=== PATIENT | female | born 1990 | race Asian ===

== ENCOUNTER 2024-01-12 05:03 | Inpatient (IN) ==
--- NOTE | 2023-12-26 12:05 | Anesthesiology Consultation ---
Date of Service December 26, 2023 Assessment & Plan (1) Encounter for pre-operative examination: - Per clinical assessment manager on 12/26/23: No known infectious disease contacts, current infectious disease symptoms in past 10 days or COVID positive test result in the past 30 days. Chart Review Chart Review: new car make ready mechanic initiated History Surgery Operation Date: 01/12/24 07:30 Proposed Procedures p Section (Delivery of Baby Through Abdominal Incision) - Dina Gonzalez MD, FACOG Height/Weight Height: 5 ft 3 in Weight: 68.946 kg Allergies Allergy/AdvReac Type Severity Reaction Status Date / Time No Known Allergies Allergy Verified 12/22/23 09:21 Medications Home Medications Medication Instructions Recorded Confirmed Last Taken prenat.vits,jinny,ysx-zfcs-muxax 1 tab PO DAILY 10/19/22 12/26/23 Unknown acetone (urine) test (Ketone Urine #50 ea 11/03/23 12/22/23 Unknown Test strips) lancets 33 gauge (OneTouch Delica #150 ea 11/03/23 12/22/23 Unknown Plus Lancet) blood sugar diagnostic (FreeStyle #400 ea 11/10/23 12/22/23 Unknown Lite Strips) blood-glucose meter (FreeStyle #1 ea 11/10/23 12/22/23 Unknown Lite Meter kit) lancets 28 gauge (FreeStyle #400 ea 11/10/23 12/22/23 Unknown Lancets) valacyclovir 500 mg tablet 500 mg PO BID #60 tabs 12/22/23 12/26/23 Unknown (Valtrex) Past Medical History Medical History Genital HSV hx; 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 Grandfather (Maternal) Diabetes Grandmother (Paternal) Stroke Denies family history of Ovarian cancer Breast cancer Colorectal cancer Past Surgical History Surgical History S/P wisdom tooth extraction done under local anesthesia Social History Smoking Status: Never smoker Do You Dip or Chew Tobacco: No Hx Alcohol Use: Yes (not while ) alcohol intake frequency: other Alcohol Intake Frequency Comment: 2 drinks/week Hx Substance Use: No substance use type: does not use
--- NOTE | 2024-01-11 12:43 | History & Physical Report ---
Date of Service January 11, 2024 Assessment & Plan (1) Breech presentation: Plan: IUP at 39 weeks with breech presentation for primary LTCS the procedure and it's risks were reviewed with the patient and all of her questions were answered to her satisfaction History of Present Illness Primary Care Provider: NO PCP Patient is a 33 yo female EDC 01/19/24 who presents at 39 weeks for primary LTCS because of persistent breech presentation. complicated by history of HSV currently on Valtrex prophylaxis and diet controlled GDM. testing has been reassuring. Allergies Allergy/AdvReac Type Severity Reaction Status Date / Time No Known Allergies Allergy Verified 01/11/24 10:24 Home Medications Medication Instructions Recorded Confirmed Type prenat.vits,jinny,gsg-ldwm-ncarp 1 tab PO DAILY 10/19/22 01/11/24 History acetone (urine) test (Ketone Urine #50 ea 11/03/23 01/11/24 Rx Test strips) lancets 33 gauge (OneTouch Delica #150 ea 11/03/23 01/11/24 Rx Plus Lancet) blood sugar diagnostic (FreeStyle #400 ea 11/10/23 01/11/24 Rx Lite Strips) blood-glucose meter (FreeStyle #1 ea 11/10/23 01/11/24 Rx Lite Meter kit) lancets 28 gauge (FreeStyle #400 ea 11/10/23 01/11/24 Rx Lancets) valacyclovir 500 mg tablet 500 mg PO BID #60 tabs 12/22/23 01/11/24 Rx (Valtrex) Patient History Medical History Genital HSV hx; 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 Grandfather (Maternal) Diabetes Grandmother (Paternal) Stroke Denies family history of Ovarian cancer Breast cancer Colorectal cancer Social History (Updated 06/06/23 @ 09:53 by Columba J Knepp) Smoking Status: Never smoker Second Hand Exposure: No; Do You Dip or Chew Tobacco: No; Hx Alcohol Use: Yes (not while ) Hx Substance Use: No Preferred Language: Uzbek Communication Ability: Effective Green Feed Attendant Required: No Beliefs That Will Affect Care: None marital status: marital status details: Sulaiman Whitt (35) [phone] Current Living Situation: Spouse Current Living Situation Comment: lives with spouse and 2 cats. litter changes. 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 [employer] Feels Safe at Home: Yes Assistive Devices: Contacts and Glasses Review of Systems All systems reviewed & are unremarkable except as noted in HPI & below Physical Exam Constitutional: WD/WN, vitals as above Respiratory: normal respiratory effort, lungs clear to auscultation Cardiovascular: RRR, no murmur, no edema Psychiatric: A+Ox3, euthymic affect Genitourinary: OB Exam Abdomen: + fundal height (term), + heart tones (140's), + breech and + estimated weight (7-8 pounds) Coding Level of Care Code None Diagnoses Breech presentation, single or unspecified fetus O32.1XX0 Fetus number: single or unspecified fetus (1) Breech presentation Fetus number: single or unspecified fetus Qualified Code(s): O32.1XX0 - Maternal care for breech presentation, not applicable or unspecified
[2024-01-12] MEDS: LACTATED RINGER'S 1,000 ML IV SCH (06:14)
[2024-01-12 06:21] LABS: Hematocrit (blood only) 39.8 % (37.0-47.0); Hemoglobin 13.4 g/dl (12.0-16.0); Mean Corpuscular Hemoglobin 28.9 pg (25.0-34.0); Mean Corpuscular Hgb Conc 33.7 g/dL (32.0-36.0); Platelet Count 280 K/uL (130-400); RDW Coefficient of Variation 13.8 % (11.5-14.5); RDW Standard Deviation 42.9 fL (36.4-46.3); Red Blood Count 4.63 M/uL (4.20-5.40); White Blood Count 10.32 K/ul (4.8-10.8)
[2024-01-12] MEDS ORDERED: MoRPHine SULFATE PF 1 MG/ML 10 ML AMP/VIAL ONE (07:04)
--- NOTE | 2024-01-12 07:10 | History & Physical Bridge Note ---
Date of Service January 12, 2024 History & Physical Bridge Note I have examined the patient, reviewed the History & Physical and in the interval since the performance of the History & Physical I have noted the following changes of clinical significance: no changes noted
[2024-01-12] MEDS: CITRIC ACID/SODIUM CITRATE 15 ML UDC PO SCH (07:28)
[2024-01-12] MEDS: ceFAZolin 2000MG 2,000 MG/15 ML SYR IV SCH (07:29)
[2024-01-12] MEDS ORDERED: NALOXONE HCL 0.08 MG in SYRINGE 1.8 ML IV PRN (07:53)
[2024-01-12] MEDS ORDERED: MoRPHine SULFATE PF 1 MG/ML 10 ML AMP/VIAL INT SPINAL ONE (07:53)
[2024-01-12] MEDS ORDERED: diphenhydrAMINE 50 MG/ML VIAL IV PRN (07:53)
[2024-01-12] MEDS ORDERED: NALBUPHINE HCL 5 MG in SYRINGE 0 ML IV PRN (07:53)
[2024-01-12] MEDS ORDERED: LACTATED RINGER'S 500 ML IV PRN (07:53)
[2024-01-12] MEDS ORDERED: MoRPHine SULFATE 2 MG/ML CARP IV PRN (07:53)
[2024-01-12] MEDS ORDERED: ePHEDrine sulfate 50 MG/ML AMP IV PRN (07:53)
[2024-01-12] MEDS ORDERED: DROPERIDOL 5 MG/2 ML VIAL IV PRN (07:53)
[2024-01-12] MEDS ORDERED: KETOROLAC 30 MG/ML VIAL IV PRN (07:53)
[2024-01-12] MEDS ORDERED: NALOXONE HCL 0.4 MG/1 ML VIAL/CARP IV PRN (07:53)
[2024-01-12] MEDS ORDERED: NALOXONE HCL 1 MG in SODIUM CHLORIDE 0.9% 1,000 ML IV PRN (07:53)
[2024-01-12] MEDS ORDERED: DC INTRASPINAL MORPHINE SCH (08:00)
[2024-01-12] MEDS ORDERED: SODIUM CHLORIDE 0.9% 1,000 ML IV SCH (08:00)
[2024-01-12] MEDS ORDERED: NO NARCOTICS OR SEDATIVES SCH (08:00)
[2024-01-12] MEDS ORDERED: PHENYLEPHRINE 100MCG/ML 10ML SYR IV ONE (08:26)
[2024-01-12] MEDS ORDERED: ONDANSETRON INJ 2 MG/ML 2 ML VIAL ONE (08:26)
[2024-01-12] MEDS ORDERED: METOCLOPRAMIDE HCL INJ 5 MG/ML 2 ML VIAL ONE (08:26)
[2024-01-12] MEDS ORDERED: OXYTOCIN 10 UNITS/ML VIAL ONE (08:26)
[2024-01-12] MEDS ORDERED: ePHEDrine sulfate 50 MG/5 ML SYR ONE (08:26)
--- NOTE | 2024-01-12 08:40 | Operative Report ---
PG Post Operative Report Pre & Post Diagnosis Operation Date: 01/12/24 07:30 Pre-Op Diagnosis: Breech Presentation Post-Op Diagnosis: Breech Presentation I identified the patient and participated in the time-out.: Yes Procedure Operation Date: 01/12/24 07:30 Actual Procedures p Section delivery of live male child at 0804 - Dina Gonzalez MD, FACOG Surgeon Dina Gonzalez MD, FACOG Internet Media Planner Shawn Jurado MD Estimated Blood Loss 1,056 (QBL) Findings Consistent with Post-Op Diagnosis Uterus is gravid and consistent with a term in size bilateral ovaries and fallopian tubes are grossly normal. The was in the ashley breech presentation. Specimens Placenta to hold Drains Daly to straight drainage -clear urine at the end of the case Anesthesia Type Spinal Complications none Disposition Accompanied Patient To Recovery: Yes Disposition: L&D Indications Patient is a 33-year-old 2 para 0-0-1-0 female EDC 01/19/2024 who presents at 39 weeks for primary section because of breech presentation. External cephalic version was not recommended as there was a double nuchal cord and estimated weight of 87 percentile. Patient is agreeable to moving forward with primary section the procedure and its risk for discussed with the patient and all her questions were answered to her satisfaction. Description of Procedure After the patient received adequate subarachnoid block she was prepped and draped in usual sterile fashion low transverse skin incision was made with a scalpel and carried the fascia with the same scalpel. The fascia was then bluntly divided in a cephalad and caudad direction. The rectus muscles were then bluntly divided in the midline and the underlying peritoneum elevated and entered sharply. The bladder reflection was noted to be 2 inferior to reach and the peritoneum was entered on the lower uterine segment to the level of the membranes. The uterine incision was then stretched open in a cephalad and caudad direction. Membranes were ruptured for clear fluid. The male infant was delivered from a ashley breech presentation with moderate fundal pressure. A loose double nuchal cord was reduced after delivery of the head. The was vigorous and crying on delivery. For 30 seconds the cord was clamped and cut. The infant was then handed off to Dr. Mar who was in attendance as underwriter. The placenta was then manually removed and the uterus exteriorized and covered with a clean lap sponge. The uterus was explored and found to be free of any retained tissue or membranes. Dilute Pitocin and fundal massage was used for hemostasis. Uterus was then closed in 2 layers in a running locking imbricating fashion with 0 Monocryl. Hemostasis was noted to be excellent on the uterine incision. The posterior cul-de-sac was suctioned for small amount of blood and fluid. The uterine incision was examined once more continue to have excellent hemostasis. The uterus was then gently placed back inside abdominal cavity. the gutters were explored and found to be free of any clot or fluid. The rectus muscle were then brought together on the midline with individual stitches of 0 Monocryl. The fascia was closed in a running fashion with 0 Vicryl. After irrigating the subcutaneous layer, the skin edges were reapproximated in a subcuticular fashion with 4-0 Vicryl. Urine was clear at the end of the case mother and infant were doing well after the . I attest to the content of the Intraoperative Record and any orders documented therein. Any exceptions are noted below. OB Procedure Charges 33187
[2024-01-12] MEDS ORDERED: MEPERIDINE HCL 50 MG/ML CARP IV PRN (08:54)
[2024-01-12] MEDS ORDERED: BENZOCAINE 20% SPRY 85 APPLN/85 GM CAN EXT PRN (08:54)
[2024-01-12] MEDS ORDERED: HYDROCORTISONE ACETATE 25 MG SUPP PR PRN (08:54)
[2024-01-12] MEDS ORDERED: SENNA 8.6 MG TAB PO PRN (08:54)
[2024-01-12] MEDS ORDERED: MAGNESIUM HYDROXIDE SUSP 30 ML UDC PO PRN (08:54)
[2024-01-12] MEDS: OXYTOCIN 20 UNITS/LR 1,002 ML IV SCH (11:16)
[2024-01-12] MEDS: ONDANSETRON INJ 2 MG/ML 2 ML VIAL IV PRN (11:58)
[2024-01-12] MEDS: DIPHTHER/TETAN/PERTUS Vaccine (Tdap, Adol/Adult) 0.5mL IM ONE (21:16)
[2024-01-12] MEDS: DOCUSATE SODIUM 100 MG CAP PO SCH (21:17)
[2024-01-12] MEDS: SIMETHICONE 80 MG CHEW PO SCH (21:17)
[2024-01-13] MEDS ORDERED: oxyCODONE/ACETAMINOPHEN 5mg/325mg TAB PO PRN (01:53)
[2024-01-13] MEDS ORDERED: diphenhydrAMINE 50 MG/ML VIAL IV PRN (01:53)
[2024-01-13] MEDS ORDERED: PROMETHAZINE HCL 25 MG in SODIUM CHLORIDE 0.9% 50 ML IV PRN (01:53)
[2024-01-13] MEDS ORDERED: ONDANSETRON INJ 2 MG/ML 2 ML VIAL IV PRN (01:53)
[2024-01-13] MEDS ORDERED: KETOROLAC 30 MG/ML VIAL IV PRN (01:53)
[2024-01-13] MEDS ORDERED: diphenhydrAMINE Capsule 25 MG CAP PO PRN (01:53)
[2024-01-13] MEDS: IBUPROFEN 600 MG TAB PO PRN (03:15)
--- NOTE | 2024-01-13 05:49 | Obstetrical Progress Note ---
Date of Service January 13, 2024 Assessment & Plan (1) Gestational diabetes mellitus (GDM) affecting , antepartum: (2) Breech presentation: Fetus number: single or unspecified fetus Qualified Code(s): O32.1XX0 - Maternal care for breech presentation, not applicable or unspecified (3) care following delivery: Plan Feels well today. Eating well, voiding well, ambulating well. Pain well controlled with prn ibuprofen. Routine care; OOB, ambulation, diet progression as tolerated. Anticipate discharge 48-72 hours after c section delivery, tomorrow or Monday. After discharge will have 6 week follow-up with Dr. Schreiber. Subjective Pt is a 33 y/o female who is POD#1 following delivery for breech at 39 weeks. Today, pt states she is feeling really well. She has been trying to keep active and walk around as much as she can. She states her pain has been decently mild and bleeding has been mild as well. Daly was removed at 3:07 am and pt has urinated since. She is passing gas and tolerating oral intake as well. She is breast feeding and does note some increased cramps when . No questions or complaints at this time. Constitutional: no fever, no chills or no sweats Respiratory: no dyspnea Cardiovascular: no chest pain or no palpitations Breast: no breast pain Genitourinary (female): no dysuria Neurologic: no headache(s) no changes in vision, no headaches Physical Exam General: Alert, oriented. No acute distress. In very good spirits today. Cardiac: Regular rate and rhythm, no murmurs, rubs, or gallops. Respiratory: Clear to auscultation bilaterally, no wheezes/rales/rhonchi. No increased work of breathing. Symmetrical chest rise. No respiratory distress. Abdomen: Soft, nontender, nondistended. Bowel sounds present. Uterus: Uterine fundus firm, palpable below the umbilicus. Surgical scar clean and healing well with dermabond overtop. Lower extremities: No lower extremity edema or swelling. No deep calf pain. Results & Data Vital Signs (Past 12 Hours) Vital Signs Temp Pulse Resp BP Pulse Ox O2 Del Method 01/13/24 03:01 36.8 C 84 16 116/77 96 Room Air 01/12/24 23:30 20 97 06/14/24 22:32 36.8 C 92 H 18 118/75 96 Room Air 01/12/24 22:19 18 95 01/12/24 21:18 18 96 01/12/24 20:51 18 97 01/12/24 19:45 18 97 01/12/24 19:45 Room Air 01/12/24 19:21 37.2 C 96 H 16 129/82 98 Room Air 01/12/24 18:25 16 97 Resident Activity Tracking Resident Involvement: Resident Care Provided Care Provided: OB Delivery
[2024-01-13 07:28] LABS: Basophils # (auto) 0.06 K/uL (0.00-0.20); Basophils % (auto) 0.4 %; Eosinophils # (auto) 0.13 K/uL (0.00-0.50); Eosinophils % (auto) 0.9 %; Hematocrit (blood only) 27.3 % (37.0-47.0); Hemoglobin 9.2 g/dl (12.0-16.0); Immature Granulocytes % (auto) 0.7 %; Lymphocytes # (auto) 1.69 K/uL (1.20-3.40); Lymphocytes % (auto) 11.9 %; Mean Corpuscular Hemoglobin 29.1 pg (25.0-34.0); Mean Corpuscular Hgb Conc 33.7 g/dL (32.0-36.0); Mean Corpuscular Volume 86.4 fL (80.0-100.0); Monocytes # (auto) 0.77 K/uL (0.11-0.59); Monocytes % (auto) 5.4 %; Neutrophils # (auto) 11.49 K/uL (1.40-6.50); Neutrophils % (auto) 80.7 %; Platelet Count 207 K/uL (130-400); RDW Standard Deviation 43.6 fL (36.4-46.3); Red Blood Count 3.16 M/uL (4.20-5.40); White Blood Count 14.24 K/ul (4.8-10.8)
[2024-01-13] MEDS: FERROUS SULFATE 325 MG TAB PO SCH (08:01)
[2024-01-13] MEDS: PRENATAL VITAMIN 1 TAB PO SCH (08:01)
[2024-01-13] MEDS: bisacodyL 5 MG TABEC PO SCH (20:42)
[2024-01-13] MEDS: ACETAMINOPHEN 325 MG TAB PO PRN (20:58)
[2024-01-13] MEDS: IBUPROFEN 800 MG TAB PO PRN (23:22)
--- NOTE | 2024-01-14 06:42 | Obstetrical Progress Note ---
Date of Service January 14, 2024 Assessment & Plan (1) care following delivery: satisfactory /post-op exam will send script for 600mg Motrin to pharmacy aware that she can also take [id number] for pain as well. Subjective Ambulation: ambulating normally Voiding: no voiding problems Passing Gas:: Yes Diet Tolerance:: regular diet Lochia:: Small Feeding Type:: breast feeding (some soreness) pain well controlled with Motrin only some issues- supplementing with formula PRN Review of Systems All systems reviewed & are unremarkable except as noted in HPI & below Physical Exam Constitutional WD/WN, vitals as above Gastrointestinal (Abdomen) Inspection/Auscultation: + abdominal surgical incision (dry & intact- no erythema) Psychiatric A+Ox3, euthymic affect Genitourinary OB Exam Abdomen: + fundal height Fundus: + firm and + relation to umbilicus (at U); not tender Results & Data Vital Signs (Past 12 Hours) Vital Signs Temp Pulse Resp BP Pulse Ox O2 Del Method 01/14/24 02:36 97.9 F 77 16 129/86 99 Room Air 01/13/24 22:59 98.2 F 74 16 122/80 98 Room Air 01/13/24 19:50 98.1 F 85 18 123/82 98 Room Air
[2024-01-14 07:14] LABS: Hematocrit (blood only) 29.6 % (37.0-47.0); Hemoglobin 9.9 g/dl (12.0-16.0)
[2024-01-14] MEDS ORDERED: bisacodyL 10 MG SUPP PR PRN (08:54)
[2024-01-14] MEDS: LACTATED RINGER'S 1,000 ML IV SCH (13:36)
--- NOTE | 2024-01-14 14:43 | Discharge Summary ---
Date of Service January 14, 2024 Admission HPI Per Admitting Provider Patient is a 33 yo female EDC 01/19/24 who presents at 39 weeks for primary LTCS because of persistent breech presentation. complicated by history of HSV currently on Valtrex prophylaxis and diet controlled GDM. testing has been reassuring. Admission Exam (Per Admitting) Constitutional WD/WN, vitals as above Respiratory normal respiratory effort, lungs clear to auscultation Cardiovascular RRR, no murmur, no edema Gastrointestinal (Abdomen) Inspection/Auscultation: + abdominal surgical incision (dry & intact- no erythema) Psychiatric A+Ox3, euthymic affect Genitourinary OB Exam Abdomen: + fundal height, + heart tones (140's), + breech and + estimated weight (7-8 pounds) Discharge Data Consultations 01/12/24 05:03 Consult Anesthesiology Stat Procedures Performed Operation Date: 01/12/24 07:30 Actual Procedures p Section delivery of live male child at 0804 - Dina Gonzalez MD, [facility] Course (1) care following delivery: satisfactory /post-op exam will send script for 600mg Motrin to pharmacy aware that she can also take [id number] for pain as well. Discharge Plan Discharge Items Patient Disposition: Home - Self-Care Reason For Visit: Breech Presentation Discharge Diagnosis: C section delivery for breech presentation Activity: Per Instructions section Non-emergency contact: Primary Care Provider Call non-emergency contact if: you have any medication questions, your pain is not controlled, your temperature is above 101, your wound has increased redness and your wound has increased drainage Follow-up/Referrals: PCP,NO [Primary Care Provider] - Diet: Regular Addtl Attending Provider Instructions: ACTIVITY RECOMMENDATIONS: * Gradual return to full activity over the next 2-3 weeks. * No lifting - nothing heavier than baby over the next 2-3 weeks. * Do not engage in vigorous exercise, sexual activity or sports until cleared by your physician. * Do not drive or operate any motorized equipment until cleared by your physician. * You may shower/bathe daily. MEDICATIONS: For discomfort or pain, you may use Acetaminophen (Tylenol), Ibuprofen (Advil), or Naproxen (Aleve) following the package directions. For constipation you may use Colace following the package directions. BREAST CARE: If you are not breast feeding: * Wear a supportive bra 24 hours a day for one to two weeks. * Avoid stimulating your breasts and nipples as much as possible during the first few weeks after delivery. * When taking a shower, have the warm water hit your back, not breasts. * When your breasts feel full, apply ice packs. Usually three to four times a day helps ease the discomfort. * Take a mild pain medication (Tylenol / Motrin) when you are uncomfortable. If breast feeding: * Use breast milk to lubricate nipples. Lansinoh cream may be used for sore nipples. You do not need to remove cream prior to breast feeding. If using a diff erent brand of cream, check the label for directions regarding removal of cream prior to nursing. * Wear a supportive bra. * If having problems with breasts or breast feeding, call a co nsultant or your health care provider. SPECIAL CARE INSTRUCTIONS: When you are discharged from the hospital, it is important for you to follow the instructions listed below: * During the first week at home, you should be able to care for yourself and your baby. In addition, the usual light household activities are encouraged. * Limit your activities to the way you feel. Do not try to clean the house or move furniture. Be sensible. * If you actively engage in sports and have done so up until the time of your delivery, you may resume these activities as soon as you feel able. This may take up to one month or even longer. Use good judgment. * Continue to take your vitamins for at least six weeks after the of your baby. * Your diet need not be limited unless you were on a special diet before your delivery. Breast-feeding mothers need around 2500 calories per day and at least 64-80 ounces of fluid per day (8 to 10 glasses). * You should eat foods from the four major food groups. Crash diets or fad diets are to be avoided. Eating lean meats, fresh fruits and vegetables, low-fat dairy products, high fiber foods and a regular exercise program, will help you get back to your pre- weight without putting your health at risk. * Constipation is sometimes a problem after delivery. Take a mild laxative as needed. If breast feeding, Milk of Magnesia is acceptable to use. You may use a suppository or Fleets enema. * A daily shower or tub bath is suggested. Wash incision daily with warm soapy water and pat dry. It doesn't need to be covered unless drainage is present. * A bloody vaginal discharge will usually continue until around four weeks . A small amount of bleeding may continue for as long as six weeks. Vaginal discharge changes from the bright red bleeding after delivery to pink then brownish and finally yellowish-pink before becoming white and disappearing. * Bleeding may increase with activity. Your first period may come in 4-8 weeks. If you are breast feeding, your period may be delayed even longer. * [place] (sex) can begin whenever both you and your partner feel comfortable and do not have any form of genital infection. It is recommended that you wait at least six weeks for internal and external healing to occur. If you have questions, please talk to your health care practitioner. A condom should be used to prevent infection and . * Foreplay, gentle intercourse and lubrication is very important the first several times to prevent pain. A water-based lubricant such as K-Y jelly or Astroglide may be used. * If you have RH negative blood and your baby is RH positive, you will receive RHOGAM by injection prior to discharge. The nurse will give you a card to keep with you that has the date and place that you received RHOGAM after delivery. * During your care, you had a Rubella screen done to check for the presence of rubella antibodies in your blood. If your test was negative, you will receive a Rubella vaccine prior to discharge. This vaccine may cause a fever, soreness at the injection site and flu-like symptoms. If these symptoms persist, notify your health care practitioner. is not advised for one month after a Rubella vaccine. * Verbalizes understanding of car seat law as reviewed with patient nursing. * Car Seat hand-out given and reviewed with patient by nursing. * Shaken baby information reviewed with patient by nursing. Call you doctor if: * Heavy bleeding (saturating several pads an hour) or passing clots the size of your fist. * A fever >101 degrees F (38.3 degrees C) on two occasions four hours apart and/or chills. * Unusual pain in the pelvic or vaginal areas. * Call the doctor for any increased redness, drainage or swelling around the incision and any pain unrelieved by prescribed pain medication. * "Baby Blues" lasting longer than two weeks. If you have any questions or concerns, call your health care practitioner at . FOLLOW UP VISIT: * Please call the office at to schedule a 6 week examination. It is important you keep this appointment. It is important for you to make arrangements for either yearly or twice yearly check-ups thereafter. Pending Studies at Discharge: No Stand-Alone Forms: My [facility] Medications and DC Order Prescriptions: New ibuprofen 600 mg tablet 600 mg PO Q6H PRN (Reason: pain) Qty: 60 1RF ferrous fumarate-vitamin C 200 mg (65 mg iron)-25 mg tablet extended release 1 tab PO DAILY Qty: 45 0RF docusate sodium [Colace] 100 mg capsule 100 mg PO DAILY Qty: 30 0RF Rx Instructions: take daily while taking iron supplement Continued prenat.vits,jinny,mse-kgab-pxttu Tablet 1 tab PO DAILY Discontinued (DME) FreeStyle Lite Strips Strip See Rx Instructions .Route Qty: 400 1RF Rx Instructions: test blood sugar QID (DME) blood-glucose meter [FreeStyle Lite Meter] Kit See Rx Instructions .Route Qty: 1 0RF Rx Instructions: use to test blood sugar QID (DME) lancets [FreeStyle Lancets] 28 gauge misc See Rx Instructions .Route Qty: 400 1RF Rx Instructions: test blood sugar QID (DME) Ketone Urine Test Strip See Rx Instructions .MEDSUPPLY Qty: 50 3RF Rx Instructions: As directed to check ketones in urine once a day in the morning (DME) lancets [OneTouch Delica Plus Lancet] 33 gauge misc See Rx Instructions .MEDSUPPLY Qty: 150 3RF Rx Instructions: As directed check blood sugars 4 times a day valacyclovir [Valtrex] 500 mg tablet 500 mg PO BID Qty: 60 1RF Discharge Orders: Discharge Order (Routine); Ordered 01/14/24 Ordered By: Dina Gonzalez Admission Data Admit Date/Time: 01/12/24 05:03 Attending Provider: Dina Gonzalez Admit Provider: Dina Gonzalez Primary Care Provider: PCP,NO Other Providers: Diana Chew Coding Level of Care Code 41995 IN/OBS DISCH 30 MIN/LESS Diagnoses care following delivery Z39.2
--- NOTE | 2024-01-16 15:01 | Anesthesiology Progress Note ---
Date of Service January 16, 2024 Anesthesia Post Procedure Pain Intensity Abdomen: Pain Intensity: 7 Transfer of Care Handoff Completed per policy Notes Mental Status: alert / awake / arousable Patient Amnestic to Procedure: Yes Nausea / Vomiting: adequately controlled Pain: adequately controlled Airway Patency, RR, SpO2: stable & adequate BP & HR: stable & adequate Hydration State: stable & adequate Neuraxial Anesthesia: was administered and sensory block is resolving Anesthetic Complications: no major complications apparent
== END 2024-01-14 16:49 | disposition home or self-care (01) | DRG 787 ==
LOC: 4S1 05:03 → EDSTATUS 07:30 → 4E2 11:30